=== PATIENT | male | born 1955 | race Caucasian/White ===

== ENCOUNTER 2022-11-09 12:09 | Outpatient (REF) | payer OTHER, SELFPAY ==
[2022-11-09 13:43] LABS: MANUAL DIFF FLAG NO
[2022-11-09 14:03] LABS: Basophils Absolute Auto 0.1 X10*3/uL (0.0-0.2); Basophils Percent Auto 0.7 % (0-2); Eosinophils Absolute Auto 0.1 X10*3/uL (0.0-0.4); Eosinophils Percent Auto 2.1 % (0-4); Hematocrit 44.5 % (42.0-52.0); Hemoglobin 14.7 g/dl (14.0-18.0); Imm Gran Abs Auto 0.03 X10*3/uL (0.00-0.03); Imm Gran Pct Auto 0.4 % (0.0-0.4); Lymphocytes Absolute Auto 1.3 X10*3/uL (1.2-4.9); Lymphocytes Percent Auto 19.7 % (20-40); Mean Corpuscular Hemoglobin 29.2 pg (27.0-33.0); Mean Corpuscular Volume 88.3 fL (80.0-98.0); Monocytes Absolute Auto 0.5 X10*3/uL (0.1-1.2); Monocytes Percent Auto 7.6 % (2-11); Neutrophils Absolute Auto 4.7 x10*3/uL (2.0-8.3); Neutrophils Percent Auto 69.5 % (45-73); Platelet Count 299 X10*3/uL (160-400); Red Blood Count 5.04 X10*6/uL (4.60-5.80); Red Cell Distribution Width 12.6 % (11.0-16.0); White Blood Count 6.8 X10*3/uL (4.8-10.8)
[2022-11-09 14:23] LABS: Alanine Aminotransferase 18 U/L (0-40); Albumin Level 4.2 g/dL (3.5-5.0); Alkaline Phosphatase 100 U/L (39-117); Anion Gap 11 (12-20); Aspartate Amino Transferase 14 U/L (5-37); Blood Urea Nitrogen 20 mg/dL (9-16); Calcium 9.7 mg/dL (8.4-10.2); Carbon Dioxide 25 mmol/L (22-29); Chloride 109 mmol/L (96-108); Cholesterol 222 mg/dL; Estimated Glomerular Filt Rate 55; Glucose Fasting 113 mg/dL (60-99); HDL Cholesterol 39 mg/dL; LDL Cholesterol Calculated 150 mg/dl; Potassium 4.3 mmol/L (3.3-5.1); Sodium 141 mmol/L (135-145); Triglycerides 169 mg/dL
[2022-11-09 14:40] LABS: TSH reflex Free T4 1.35 uIU/mL (0.32-4.0)
[2022-11-13 21:59] LABS: PSA, Ultra Sensitive 2.48 ng/mL
== END 2022-11-09 12:10 | disposition home or self-care (01) ==
LOC: HO.WFDLDS 12:09
PROVIDERS: Visit Provider Nurse Practitioner Family
DX: Z00.00 Encounter for general adult medical examination without abnormal findings (principal); N52.9 Male erectile dysfunction, unspecified; K46.9 Unspecified abdominal hernia without obstruction or gangrene; M25.661 Stiffness of right knee, not elsewhere classified; I10 Essential (primary) hypertension; Z12.5 Encounter for screening for malignant neoplasm of prostate
CPT/HCPCS: 36415; 80053; 80061; 84153; 84443; 85025

== ENCOUNTER 2022-12-10 13:07 | Outpatient (AMB) | payer OTHER, SELFPAY ==
--- NOTE | 2022-12-10 13:12 | A.OFFPC_ITS ---
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 Accompanied by: Self / Same As Patient Allergies No Known Allergies Allergy (Verified 12/10/22 13:22) Medication List - Last Reconciled 12/10/22 by Rolando Villalobos CNP No Known Home Meds Tobacco use date assessed: 11/05/22 Fall risk assessment: No Falls in past year Last assessed Fall Risk: 12/10/22 Dental Screening Dental Screen Date: 12/10/22 Did you have a dental visit in the last 12 months?: No Did you have a dental problem in the last 6 months where you did not have access to dental care?: No Was dental information given to patient?: Yes HPI HPI Comments History of Present Illness Details 67-year-old male presents for a complete physical exam He established care a month ago. His blood pressure was elevated, 160/100. He declined treatment with amlodipine. He stated he would try lifestyle modification by diet and exercise He notes he has been making healthy the dietary choices and exercising routinely No acute symptoms today He notes that he has an appointment scheduled with urology for ED next month. He has not heard from GI for abdominal hernia He notes that his last colonoscopy may have been 5 years ago: benign polyps removed He has not had the shingle and PNA vaccines PFSH Medical History Kidney stone No pertinent family history Surgical History H/O hernia repair Social History Housing: Apartment Patient Tobacco Use Status: Never used Tobacco e-Cigarette/Vaping Use: Never Used service: No Current occupational status: employed Current occupation: [employer] Cognitive needs: No Hearing needs: No Vision needs: Yes Questionnaire Thrive Questionnaire Date Thrive assessed: 11/05/22 SURAJ-7 AMB Questionnaire SURAJ-7 Date SURAJ - 7 assessed: 11/05/22 Source: Developed by Drs. Demetrius Rubio, Adrianna Lennon, Godfrey Perez and colleagues, with an educational denton from [employer]. Review of Systems Const Details: Denies chills, Denies fatigue, Denies fever(s), Denies headache(s) and Denies weakness HEENT Denies change in vision, Denies dizziness, Denies headache(s), Denies hearing loss, Denies nasal congestion, Denies sinus pain, Denies sinus pressure and Denies sore throat Card Denies chest pain, Denies lightheadedness, Denies dyspnea and Denies other (palpitations) Resp Denies cough, Denies dyspnea and Denies wheezing GI Denies abdominal pain, Denies melena, Denies hematochezia, Denies change in bowel habits, Denies dyspepsia and Denies nausea Denies hematuria and Denies dysuria Musc Denies abnormal gait, Denies myalgias, Denies arthralgias, Denies numbness and Denies tingling Skin/Breast Denies rash, Denies unusual bruising and Denies wounds Neuro Denies abnormal gait, Denies dizziness, Denies headache(s), Denies memory loss, Denies numbness, Denies Sensory deficit (Neuro), Denies tingling and Denies weakness Psych Denies anxiety, Denies depression and Denies memory loss Endo Denies cold intolerance, Denies fatigue, Denies heat intolerance, Denies polydipsia and Denies polyuria Chance/Lymph Denies easy bleeding and Denies easy bruising Aller/Immun Denies wheezing Physical exam (Primary Care) Vital Signs: Last Vital Signs Temp 97.2 F 12/10/22 13:13 Pulse 79 12/10/22 13:13 Resp 12 12/10/22 13:13 BP 128/80 12/10/22 13:13 Pulse Ox 98 12/10/22 13:13 Oxygen Delivery Method Room Air 12/10/22 13:13 BMI result Body Mass Index 26.8 Tobacco/Smoking Status: Tobacco use Status Tobacco use date assessed 11/05/22 11/05/22 11:21 Patient Tobacco Use Status Never used Tobacco 11/05/22 11:21 e-Cigarette/Vaping Use Never Used 11/05/22 11:21 Thrive Assessment: Date of Thrive Assessment Date Thrive assessed 11/05/22 11/05/22 11:21 Const Other: General: no acute distress, well developed, alert and awake Nutritional Appearance: well nourished Orientation/consciousness: patient oriented x3 [facility] Head: Yes normocephalic and Yes atraumatic Ears: hearing grossly normal bilaterally and TM's normal bilaterally General nose exam: Normal external nose present and Normal nares present Mouth: Normal oral and palatal mucosa present and moist mucous membranes Teeth and gingiva: dentition normal Throat: Yes oropharynx normal Eyes Pupils: Equal, round and reactive pupils present and Pupil accommodation reflex normal EOM: EOMs intact bilaterally Neck Neck: Yes normal visual inspection, Yes no lymphadenopathy and Yes trachea midline Thyroid: Thyroid normal Carotids: no bruits Lymphatic: no lymphadenopathy noted Chest Chest palpation & inspection: normal inspection of the chest Resp Effort & Inspection: normal respiratory effort Auscultation: clear to auscultation bilaterally Cardio Rate: regular rate Rhythm: regular rhythm Heart sounds: S1 normal heart sound present, S2 normal heart sound present, no gallops, no murmurs and no rubs Bruits: no abdominal aortic bruits and no carotid bruits GI Palpation (GI): No Abdominal aortic bruit present, Soft to palpation, nontender, No hepatosplenomegaly present and No Rebound tenderness present Approximately 5 cm 5 cm soft, painless protrusion noted to the right upper quadrant proximal to the midline Auscultation: normal bowel sounds General: Yes no CVA tenderness Back/Spine/Pelvis Back: no CVA tenderness Cervical Spine: cervical ROM normal and No Cervical spine tenderness Thoracic/Lumbar Spine: thoraco-lumbar ROM normal, No pain with thoraco-lumbar ROM, No thoracic spinal tenderness and No lumbar spinal tenderness Skin General: warm and dry. Normal skin color. Normal skin turgor Lesions: no lesions Rashes: no rashes Trauma: no lacerations or abrasions Wounds: no wounds Nails: normal Neuro General: patient oriented x3, gait normal and CN's II-XI intact bilaterally Cranial nerves: Yes Equal, round and reactive pupils present Cognition (Neuro): normal cognition Gait exam (Neuro): Normal gait present Motor exam (neuro): 5/5 motor strength present throughout Sensory Exam: No Sensory deficit (Neuro) Deep tendon reflexes (DTR's): Right patellar reflex intensity grade: 2+ and Left patellar reflex intensity grade: 2+ Extrem General: Yes normal to inspection, No edema and No calf tenderness Psych Appearance: grossly normal Affect: normal affect Attitude: cooperative Thought process: Normal thought process present Assessment and Plan Assessment & Plan (1) Normal physical examination, routine: Code(s): Z00.00 - Encounter for general adult medical examination without abnormal findings Plan: No significant physical restrictions or limitations noted Follow-up in 3 months for health maintenance Return sooner with symptoms or concerns Verbalized understanding and agreed with treatment plan. (2) Elevated blood pressure reading without diagnosis of hypertension: Code(s): R03.0 - Elevated blood-pressure reading, without diagnosis of hypertension Plan: He established care a month ago. His blood pressure was elevated, 160/100. He declined treatment with amlodipine. He stated he would try lifestyle modification by diet and exercise He notes he has been making healthy the dietary choices and exercising routinely His blood pressure today is 128/80, within goal of less than 140/90 Low-sodium diet and routine exercise encouraged Will continue to monitor Return in 3 months for health maintenance or sooner with symptoms or concerns Verbalized understanding and agreed with treatment plan (3) Abdominal hernia: Code(s): K46.9 - Unspecified abdominal hernia without obstruction or gangrene Plan: He has not heard from GI for abdominal hernia Approximately 5 cm 5 cm soft, painless protrusion noted to the right upper quadrant proximal to the midline Will discontinue GI referral and refer to general surgery Follow-up with symptoms or concerns Verbalized understanding and agreed with treatment plan (4) Elevated fasting glucose: Code(s): R73.01 - Impaired fasting glucose Plan: Recent lab results reviewed with patient Fasting blood glucose was elevated, 113 Fasting blood glucose reordered to monitor trend. Encouraged to get blood work done Healthy diet and routine exercise encouraged Follow-up with symptoms or concerns Verbalized understanding and agreed with treatment plan (5) Hyperlipidemia: Code(s): E78.5 - Hyperlipidemia, unspecified Plan: Recent lab results reviewed with patient Slight elevation on triglyceride, cholesterol, and LDL levels; slight decrease in HDL level His 10-year risk of ASCVD is 12.2% Limit foods high in saturated fat and avoid foods high trans Routine exercise encouraged Lipid panel ordered. Advised to get fasting blood work done 1-2 days before next visit Follow-up in 3 months for health maintenance or return sooner with symptoms or concerns Verbalized understanding and agreed with treatment plan. (6) Colon cancer screening: Code(s): Z12.11 - Encounter for screening for malignant neoplasm of colon Plan: Referred to Gastroenterology (7) Vaccine counseling: Code(s): Z71.85 - Encounter for immunization safety counseling Plan: Instructed on the importance of vaccination and encouraged to get vaccinated against shingles and pneumonia Verbalized understanding and agreed with the plan Orders: Orders Glucose Fasting Today R73.01 - Impaired fasting glucose Lipid Panel 3 Months E78.5 - Hyperlipidemia, unspecified Referrals Gastroenterology Referral Z12.11 - Encounter for screening for malignant neoplasm of colon General Surgery Referral K46.9 - Unspecified abdominal hernia without obstruction or gangrene Coding Level of Care Code Est Pt Prev Care >65y(52861) Diagnoses Normal physical examination, routine Z00.00 Elevated blood pressure reading without diagnosis of hypertension R03.0 Abdominal hernia K46.9 Elevated fasting glucose R73.01 Hyperlipidemia E78.5 Colon cancer screening Z12.11 Vaccine counseling Z71.85
[2022-12-10 13:13] VITALS: BP 128/80; PULSE 79; RESP 12; TEMP 36.2; O2SAT 98; BMI 26.8
== END 2022-12-10 13:54 | disposition home or self-care (01) ==
PROVIDERS: PCP Internal Medicine; Visit Provider Nurse Practitioner Family
DX: Z00.00 Encounter for general adult medical examination without abnormal findings (principal); R03.0 Elevated blood-pressure reading, without diagnosis of hypertension; K46.9 Unspecified abdominal hernia without obstruction or gangrene; R73.01 Impaired fasting glucose; E78.5 Hyperlipidemia, unspecified; Z12.11 Encounter for screening for malignant neoplasm of colon; Z71.85 Encounter for immunization safety counseling
CPT/HCPCS: 99397

== ENCOUNTER 2022-12-16 09:14 | Outpatient (AMB) | payer OTHER, SELFPAY ==
--- NOTE | 2022-12-16 09:15 | A.OFFVIS_ITS ---
Intake Vital Signs 12/16/22 09:22 Height 5 ft 6.54 in Weight 175 lb BMI 27.8 BP 161/98 H Blood Pressure Location Rt brachial Position Sitting Pulse 82 Intake Visit Reasons: abdominal hernia Intake Note: Patient referred for abd hernia. Has been present for years. Has protrusion on RUQ. Denies pain or tenderness. 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 It has been present for many many years. Patient thinks it is increasing in size, becoming more symptomatic. It is definitely more noticeable since he has lost weight he thinks. Patient is quite active and does heavy lifting at work and also lifts weights for recreation. He is tolerating a diet having normal bowel habits. He has no other GI issues or complaints. [facility] Medical History Kidney stone No pertinent family history Surgical History H/O hernia repair Social History (Updated 12/16/22 @ 09:22 by KATHERINE Mart) Housing: Apartment Alcohol intake: former Patient Tobacco Use Status: Never used Tobacco e-Cigarette/Vaping Use: Never Used service: No Current occupational status: employed Current occupation: [employer] Cognitive needs: No Hearing needs: No Vision needs: Yes Physical Exam Vital Signs: Last Vital Signs Pulse 82 12/16/22 09:22 BP 161/98 H 12/16/22 09:22 BMI result Body Mass Index 27.8 Chest Other: Chest breath sounds bilaterally, HS 1 in 2 GI Other: Patient was examined both supine and standing with Valsalva. Bilateral groin exam negative. Genitalia within normal limits. Abdomen soft, benign. Supraumbilical irreducible ventral hernia measuring approximately 2 cm. Assessment & Plan Assessment & Plan (1) Ventral hernia: Code(s): K43.9 - Ventral hernia without obstruction or gangrene Plan I discussed the patient therapeutic options which include conservative therapy or consideration for repair. Risks, benefits, alternatives of repair reviewed the patient included but not limited to bleeding, infection, recurrence, numbness, pain, scarring, bowel injury and the patient would like to think over his options. He is retiring and a few months time would like to proceed with surgery once his assisted is activated. The meantime, we discussed symptoms of incarceration and strangulation and should he develop any of these, he has been instructed to call the office or present immediately to the ER. Coding Level of Care Code New Pt Level 4 (04306) Diagnoses Ventral hernia K43.9
[2022-12-16 09:22] VITALS: BP 161/98; PULSE 82; BMI 27.8
== END 2022-12-16 09:45 | disposition home or self-care (01) ==
PROVIDERS: PCP Nurse Practitioner Family; Visit Provider Surgery
DX: K43.9 Ventral hernia without obstruction or gangrene (principal)
CPT/HCPCS: 99204

== ENCOUNTER → 2022-12-16 09:14 | Outpatient (BNVA) | payer OTHER, SELFPAY | PROVIDERS: PCP Nurse Practitioner Family; Visit Provider Surgery ==

== ENCOUNTER 2022-12-21 10:37 | Outpatient (REF) | payer OTHER, SELFPAY ==
[2022-12-21 14:22] LABS: Appearance Urine Clear; Color Urine Yellow; Glucose Urine UA Negative (Negative); Leukocyte Esterase Urine Negative (Negative); Nitrite Urine Negative (Negative); PH 5.5 (5.0-9.0); Specific Gravity - Urine 1.015 (1.005-1.025); Urine Blood Negative (Negative); Urine Ketones Negative (Negative); Urine Protein Negative (Neg-Trace)
[2022-12-21 14:57] LABS: Glucose Fasting 103 mg/dL (60-99)
== END 2022-12-21 10:38 | disposition home or self-care (01) ==
LOC: HO.WFDLDS 10:37
PROVIDERS: Visit Provider Nurse Practitioner Family
DX: Z00.00 Encounter for general adult medical examination without abnormal findings (principal); R73.01 Impaired fasting glucose
CPT/HCPCS: 36415; 81003; 82947

== ENCOUNTER 2023-01-13 10:34 | Outpatient (AMB) | payer OTHER, SELFPAY ==
--- NOTE | 2023-01-13 03:47 | A.OFFVIS_ITS ---
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 01/13/2023? He mentions having erectile dysfunction. He states that the symptoms have been ongoing for 2 years. He tried the generic Viagra, but he did not get a full erection with that. He denies morning erection. He denies any history of cigarette smoking. I reviewed the results of PSA from 11/09/2022 revealed 2.48. He had urinalysis on 11/2022, I reviewed results UA -leuk neg, blood neg Plan: Free and total testosterone level (fasting) and Cialis 5 mg was ordered. 8-week tele-health video follow up. [facility] Medical History Kidney stone No pertinent family history Surgical History H/O hernia repair Social History Housing: Apartment Alcohol intake: former Patient Tobacco Use Status: Never used Tobacco e-Cigarette/Vaping Use: Never Used service: No Current occupational status: employed Current occupation: [employer] Cognitive needs: No Hearing needs: No Vision needs: Yes Review of Systems Const All systems reviewed & are unremarkable except as noted in HPI and below Reports no additional complaints Eyes Reports no additional complaints ENT Reports no additional complaints Card Denies dyspnea Resp Denies cough and Denies dyspnea GI Reports no additional complaints Musc Reports no additional complaints Skin/Breast Denies rash and Denies unusual bruising Neuro Reports no additional complaints Psych Reports no additional complaints Endo Reports no additional complaints Chance/Lymph Reports no additional complaints Aller/Immun Reports no additional complaints Physical Exam Const General: healthy appearing, no acute distress and well developed Orientation/consciousness: patient oriented x3 HEENT Head: Yes normocephalic and Yes atraumatic Eyes Conjunctivae: conjunctivae normal Neck Neck: Yes normal visual inspection Chest Chest palpation & inspection: normal inspection of the chest Resp Effort & Inspection: normal respiratory effort Cardio Rate: regular rate GI Inspection: Yes normal to inspection Skin General skin exam: no rashes or lesions noted Neuro General: patient oriented x3 Extrem General: No pedal edema Psych Appearance: grossly normal Affect: normal affect Assessment & Plan Assessment & Plan (1) Erectile dysfunction: Code(s): N52.9 - Male erectile dysfunction, unspecified Plan Free and total testosterone level (fasting) and Cialis 5 mg was ordered. 8-week tele-health video follow up. Medications: New tadalafil (Cialis) [id number] [facility] [id number] Member [id number] 5 mg PO DAILY 90 tabs 1RF Patient Instructions: The patient had an opportunity to ask questions regarding treatment plan. All questions were answered. Imaging, Laboratory studies and physical exam results were discussed and reviewed in detail. No major barriers to understanding were identified. The patient expressed understanding and agreement with the above treatment plan.? ? ? The patient is aware they should contact our office by phone for worsening of their current condition or the appearance of new symptoms. Compliance is encouraged with any medications and followup testing that is ordered.? ? ? It is a privilege to be allowed the opportunity to participate in the urologic care of your patient. If you have any questions or concerns regarding treatment for the above conditions please do not hesitate to contact me. The office telephone contact is [phone].? ? ? This note is constructed in part using voice recognition software. While every effort has been made to ensure accuracy technical testing engineer errors may have been included.? ? ? Yours sincerely,? ? ? Linda Shirley MD? Coding Level of Care Code New Pt Level 3 (44427) Diagnoses Erectile dysfunction N52.9
== END 2023-01-13 11:43 | disposition home or self-care (01) ==
PROVIDERS: PCP Nurse Practitioner Family; Visit Provider Urology
DX: N52.9 Male erectile dysfunction, unspecified (principal)
CPT/HCPCS: 99203

== ENCOUNTER → 2023-01-13 10:34 | Outpatient (BNVA) | payer OTHER, SELFPAY | PROVIDERS: PCP Nurse Practitioner Family; Visit Provider Urology ==

== ENCOUNTER 2023-02-22 08:23 | Outpatient (REF) | payer OTHER, SELFPAY ==
[2023-02-22 12:26] LABS: Cholesterol 176 mg/dL (<200); HDL Cholesterol 40 mg/dL (>40); LDL Cholesterol Calculated 113 mg/dL (<100); Triglycerides 117 mg/dL (<150)
== END 2023-02-22 08:24 | disposition home or self-care (01) ==
LOC: HO.WFDLDS 08:23
PROVIDERS: Visit Provider Nurse Practitioner Family
DX: E78.5 Hyperlipidemia, unspecified (principal)
CPT/HCPCS: 36415; 80061

== ENCOUNTER 2023-03-04 08:09 | Outpatient (REF) | payer OTHER, SELFPAY | END 2023-03-04 08:10 | disposition home or self-care (01) | LOC: HO.WFDLDS 08:09 | PROVIDERS: Visit Provider Urology | DX: N52.9 Male erectile dysfunction, unspecified (principal) | CPT/HCPCS: 36415; 84402; 84403 ==

== ENCOUNTER 2023-03-09 13:07 | Outpatient (AMB) | payer OTHER, SELFPAY ==
--- NOTE | 2023-03-09 13:13 | MHC.PC.OV ---
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 Accompanied by: Self / Same As Patient Allergies No Known Allergies Allergy (Verified 03/09/23 13:32) Medication List - Last Reconciled 03/09/23 by Rolando Villalobos CNP tadalafil (Cialis) 5 mg PO DAILY Tobacco use date assessed: 11/05/22 Fall risk assessment: No Falls in past year Last assessed Fall Risk: 03/09/23 Dental Screening Dental Screen Date: 03/09/23 Did you have a dental visit in the last 12 months?: No Did you have a dental problem in the last 6 months where you did not have access to dental care?: No Was dental information given to patient?: Yes HPI HPI Comments History of Present Illness Details 59-year-old male presents for health maintenance follow-up. His last office visit was 3 months ago. He had a complete physical exam. He has history of hyperlipidemia, elevated fasting glucose, elevated blood pressure, erectile dysfunction, and abdominal hernia. On 12/16/2022, he was evaluated by General surgery for ventral hernia. Patient noted he would consider surgical repair once he is retired in a few months. On 01/13/2023, he was evaluated by Urology for erectile dysfunction. He was prescribed Cialis and was advised to follow-up for a telemedicine visit in 8 weeks. He had a colonoscopy appointment scheduled on 02/02/2023. He notes that that the appointment was cancelled because the provider arrived late. He called to rescheduled but he has not heard a response back. He reports significant improvement of erectile dysfunction on Cialis. He notes that he has been maintaining a fairly healthy diet. He has also been avoiding salt. He denies acute symptoms. [facility] Medical History Kidney stone No pertinent family history Surgical History H/O hernia repair Social History Housing: Apartment Alcohol intake: former Patient Tobacco Use Status: Never used Tobacco e-Cigarette/Vaping Use: Never Used service: No Current occupational status: employed Current occupation: [employer] Cognitive needs: No Hearing needs: Yes Vision needs: No Questionnaire Thrive Questionnaire Date Thrive assessed: 11/05/22 SURAJ-7 AMB Questionnaire SURAJ-7 Date SURAJ - 7 assessed: 11/05/22 Source: Developed by Drs. Demetrius Rubio, Adrianna Lennon, Godfrey Perez and colleagues, with an educational denton from [email or web address]. Review of Systems Const Details: Const Denies chills, Denies fatigue, Denies fever(s), Denies headache(s) and Denies weakness ENT Denies dizziness and Denies headache(s) Card Denies chest pain, Denies lightheadedness, Denies dyspnea and Denies other (Palpitations) Resp Denies cough, Denies dyspnea, Denies wheezing and Denies other ( shortness of breath) GI Denies abdominal pain, Denies melena, Denies hematochezia, Denies change in bowel habits, Denies dyspepsia and Denies nausea Denies hematuria and Denies dysuria Musc Denies abnormal gait, Denies myalgias, Denies arthralgias, Denies numbness and Denies tingling Skin/Breast Denies rash, Denies unusual bruising and Denies wounds Neuro Denies abnormal gait, Denies dizziness, Denies headache(s), Denies memory loss, Denies numbness, Denies Sensory deficit (Neuro), Denies tingling and Denies weakness Psych Denies anxiety, Denies depression, Denies memory loss Endo Denies cold intolerance, Denies fatigue, Denies heat intolerance, Denies polydipsia and Denies polyuria Aller/Immun Denies wheezing Physical exam (Primary Care) Tobacco/Smoking Status: Tobacco use Status Tobacco use date assessed 11/05/22 03/09/23 13:15 Patient Tobacco Use Status Never used Tobacco 03/09/23 13:15 e-Cigarette/Vaping Use Never Used 03/09/23 13:15 Thrive Assessment: Date of Thrive Assessment Date Thrive assessed 11/05/22 03/09/23 13:15 Const Other: General: no acute distress and well developed Nutritional Appearance: well nourished Orientation/consciousness: patient oriented x3 [facility] Head: Yes normocephalic and Yes atraumatic Eyes General: appearance normal, both eyes and all related structures Pupils: Equal, round and reactive pupils present EOM: EOMs intact bilaterally Resp Effort & Inspection: normal respiratory effort Auscultation: clear to auscultation bilaterally Cardio Rate: regular rate Rhythm: regular rhythm Heart sounds: S1 normal heart sound present, S2 normal heart sound present, no gallops, no murmurs and no rubs GI Palpation (GI): No Abdominal aortic bruit present, Soft to palpation, nontender, No hepatosplenomegaly present and No Rebound tenderness present Auscultation: normal bowel sounds General: Yes no CVA tenderness Back/Spine/Pelvis Back: no CVA tenderness Cervical Spine: cervical ROM normal and No Cervical spine tenderness Thoracic/Lumbar Spine: thoraco-lumbar ROM normal, No pain with thoraco-lumbar ROM, No thoracic spinal tenderness and No lumbar spinal tenderness Extrem General: Yes normal to inspection, No edema and No calf tenderness Skin General: warm and dry. Normal skin color. Normal skin turgor Lesions: no lesions Rashes: no rashes Trauma: no lacerations or abrasions Wounds: no wounds Nails: normal Neuro General: patient oriented x3, gait normal and no focal neuro deficit Cranial nerves: Yes Equal, round and reactive pupils present Cognition (Neuro): normal cognition Gait exam (Neuro): Normal gait present Sensory Exam: No Sensory deficit (Neuro) Psych Appearance: grossly normal Affect: normal affect Attitude: cooperative Thought process: Normal thought process present Results AMB Hemoglobin A1c AMB Hemoglobin A1c 5.8 % Last Edit by Isamar Quesada MA on 03/09/23 13:47 Assessment and Plan Assessment & Plan (1) Pre-diabetes: Code(s): R73.03 - Prediabetes Plan: His fasting glucose has been slightly elevated twice A1c today is 5.8% and indicates prediabetes Instructed on healthy diet including low carbs Will continue to monitor at least annually Verbalized understanding and agreed with the treatment plan. (2) Erectile dysfunction: Code(s): N52.9 - Male erectile dysfunction, unspecified Plan: Reports significant improvement on Cialis. Continue to take Cialis as prescribed. Continue follow-up with urology as planned. Return with with worsening or new symptoms. Verbalized understanding and agreed with treatment plan. (3) Hyperlipidemia: Code(s): E78.5 - Hyperlipidemia, unspecified Plan: Advised to limit foods high in saturated fat and avoid foods high trans fat. Routine exercise encouraged. Verbalized understanding and agreed with treatment plan. (4) Elevated blood pressure reading without diagnosis of hypertension: Code(s): R03.0 - Elevated blood-pressure reading, without diagnosis of hypertension Plan: He has had history of elevated blood pressure readings. His resting blood pressure today is 140/80 on the left arm and 154/90 on the right arm. Low-sodium diet encouraged. Patient advised to follow-up for a nurse visit for blood pressure check in a week and subsequent week. Follow-up with PCP in 1 month. Return with symptoms or concerns. Verbalized understanding and agreed with treatment plan. (5) Colon cancer screening: Code(s): Z12.11 - Encounter for screening for malignant neoplasm of colon Plan: He had a GI appointment for colonoscopy that was scheduled on 02/02/2023 but canceled. Patient notes that appointment was canceled due to the provider not being on time. The certified medical assistant called the GI office and was told that the patient was a no-show for his colonoscopy appointment. He is instructed to call the direct life with GI and reschedule his appointment. Telephone number for direct contact to GI provided to the patient. Patient admits that forgot and went to his appointment the day after it was scheduled. Patient encouraged to call and schedule an appointment for a colonoscopy. He verbalized understanding and agreed with the plan. Orders: Orders AMB Hemoglobin A1c Today Z13.9 - Encounter for screening, unspecified Coding Level of Care Code Est Pt Level 3 (37618) Diagnoses Pre-diabetes R73.03 Erectile dysfunction N52.9 Hyperlipidemia E78.5 Elevated blood pressure reading without diagnosis of hypertension R03.0 Colon cancer screening Z12.11
[2023-03-09 13:19] VITALS: BP 136/74; PULSE 75; RESP 13; TEMP 36.4; O2SAT 99; BMI 28.1
[2023-03-09 13:43] VITALS: BP 140/80
[2023-03-09 13:44] VITALS: BP 154/90
== END 2023-03-09 14:07 | disposition home or self-care (01) ==
PROVIDERS: PCP Nurse Practitioner Family; Visit Provider Nurse Practitioner Family
DX: R73.03 Prediabetes (principal); N52.9 Male erectile dysfunction, unspecified; E78.5 Hyperlipidemia, unspecified; R03.0 Elevated blood-pressure reading, without diagnosis of hypertension; Z12.11 Encounter for screening for malignant neoplasm of colon
CPT/HCPCS: 83036; 99213

== ENCOUNTER 2023-03-15 09:05 | Outpatient (AMB) | payer OTHER, SELFPAY ==
--- NOTE | 2023-03-15 09:06 | MHC.OFFVIS ---
Intake Intake Visit Reasons: 8w/lab Intake Note: Patient presents today for a Telehealth visit Meds- Tadalafil Allergies to Antibiotic- No Known Allergies Blood Thinner- None Allergies No Known Allergies Allergy (Verified 03/15/23 09:07) Medication List - Last Reconciled 03/15/23 by Linda Shirley MD tadalafil (Cialis) 5 mg PO DAILY HPI HPI Comments History of Present Illness Details Chay is a 68-year-old male who presents today via Tele-health visit for a follow-up. 03/15/23? He is followed today for blood work. He was last seen by me on 01/13/23 for erectile dysfunction. Free and total testosterone level (fasting) and Cialis 5 mg was ordered during that time. Patient states that he has noticed improvement in his erection function with the use of Cialis 5 mg. I reviewed his Free and total testosterone level (fasting) revealed within normal limits. Review of charts: Last visit: 01/13/2023? He mentions having erectile dysfunction. He states that the symptoms have been ongoing for 2 years. He tried the generic Viagra, but he did not get a full erection with that. He denies morning erection. He denies any history of cigarette smoking. I reviewed the results of PSA from 11/09/2022 revealed 2.48. He had urinalysis on 11/2022, I reviewed results UA -leuk neg, blood neg 03/15/23: Plan: Refilled Cialis 5 mg. Continue PSA screening. Follow-up in November,, PSA screening prior. [facility] Medical History No pertinent family history Kidney stone Surgical History H/O hernia repair Social History Housing: Apartment Alcohol intake: former Patient Tobacco Use Status: Never used Tobacco e-Cigarette/Vaping Use: Never Used service: No Current occupational status: employed Current occupation: [employer] Cognitive needs: No Hearing needs: Yes Vision needs: No Review of Systems Const All systems reviewed & are unremarkable except as noted in HPI and below Reports no additional complaints Eyes Reports no additional complaints ENT Reports no additional complaints Card Denies dyspnea Resp Denies cough and Denies dyspnea GI Reports no additional complaints Musc Reports no additional complaints Skin/Breast Denies rash and Denies unusual bruising Neuro Reports no additional complaints Psych Reports no additional complaints Endo Reports no additional complaints Chance/Lymph Reports no additional complaints Aller/Immun Reports no additional complaints Assessment & Plan Assessment & Plan (1) Erectile dysfunction: Code(s): N52.9 - Male erectile dysfunction, unspecified Plan Refilled Cialis 5 mg. Continue PSA screening. Follow-up in October/November,, PSA screening prior. Medications: Refilled tadalafil (Cialis) [id number] [facility] [id number] Member [id number] 5 mg PO DAILY 90 tabs 3RF Patient Instructions: The patient had an opportunity to ask questions regarding treatment plan. All questions were answered. Imaging, Laboratory studies and physical exam results were discussed and reviewed in detail. No major barriers to understanding were identified. The patient expressed understanding and agreement with the above treatment plan.? ? ? The patient is aware they should contact our office by phone for worsening of their current condition or the appearance of new symptoms. Compliance is encouraged with any medications and followup testing that is ordered.? ? ? It is a privilege to be allowed the opportunity to participate in the urologic care of your patient. If you have any questions or concerns regarding treatment for the above conditions please do not hesitate to contact me. The office telephone contact is [phone].? ? ? This note is constructed in part using voice recognition software. While every effort has been made to ensure accuracy squeak rattle and leak repairer errors may have been included.? ? ? Yours sincerely,? ? ? Linda Shirley MD? Telehealth Telehealth Location of provider rendering services: practice address Location of patient: address on file Patient Identification confirmed using: Name, : Yes Telehealth method: voice only Patient verbally consented to treatment: Yes Patient verbally consented to billing insurance company: Yes Patient informed of any privacy concerns related to visit: Yes Minutes spent on Phone/Video with Pt.: 15 Coding Level of Care Code Tele New Pt Level 3 (82811) Diagnoses Erectile dysfunction N52.9
== END 2023-03-15 09:50 | disposition home or self-care (01) ==
LOC: HO.HUSH 09:05
PROVIDERS: PCP Nurse Practitioner Family; Visit Provider Urology
DX: N52.9 Male erectile dysfunction, unspecified (principal)
CPT/HCPCS: G2252

== ENCOUNTER → 2023-03-15 09:05 | Outpatient (BNVA) | payer OTHER, SELFPAY | PROVIDERS: PCP Nurse Practitioner Family; Visit Provider Urology ==

== ENCOUNTER 2023-04-14 13:10 | Outpatient (AMB) | payer OTHER, SELFPAY ==
--- NOTE | 2023-04-14 13:12 | A.OFFPC_ITS ---
Vital Signs 04/14/23 13:18 04/14/23 13:36 Height 5 ft 6 in Weight 177 lb BMI 28.6 BP 148/80 H 140/90 H Blood Pressure Location Lt brachial Rt brachial Position Sitting Sitting Respiration 14 Pulse 84 Pulse Source Pulse Oximeter Pulse Oximetry (%) 98 Oxygen Delivery Method Room Air Intake Visit Reasons: f/u HTN Intake Note: Patient is here for a follow up for hypertension. Drug Regulatory Affairs Specialist Required: No Accompanied by: Self / Same As Patient Allergies No Known Allergies Allergy (Verified 04/14/23 13:26) Medication List - Last Reconciled 04/14/23 by Rolando Villalobos CNP tadalafil (Cialis) 5 mg PO DAILY Tobacco use date assessed: 11/05/22 Fall risk assessment: No Falls in past year Last assessed Fall Risk: 04/14/23 HPI HPI Comments History of Present Illness Details 68-year-old male presents for hypertensi on follow-up He established care in October. His blood pressure was found to be elevated. Treatment was recommended with amlodipine. However, patient declined and stated he will try lifestyle modification, including diet and routine exercise. He notes that he has not been able to exercise since his last visit. However, he has been consuming less sodium done before, but he cannot stop eating foods with high sodium content. He offers no complaints and denies acute symptoms at this time. [facility] Medical History No pertinent family history Kidney stone Surgical History H/O hernia repair Social History Housing: Apartment Alcohol intake: former Patient Tobacco Use Status: Never used Tobacco e-Cigarette/Vaping Use: Never Used service: No Current occupational status: employed Current occupation: [employer] Cognitive needs: No Hearing needs: Yes Vision needs: No Questionnaire Thrive Questionnaire Date Thrive assessed: 11/05/22 SURAJ-7 AMB Questionnaire SURAJ-7 Date SURAJ - 7 assessed: 11/05/22 Source: Developed by Drs. Demetrius Rubio, Adrianna Lennon, Godfrey Perez and colleagues, with an educational denton from [employer] Review of Systems Const Details: Const Denies chills, Denies fatigue, Denies fever(s), Denies headache(s) and Denies weakness ENT Denies dizziness and Denies headache(s) Card Denies chest pain, Denies lightheadedness, Denies dyspnea and Denies other (Palpitations) Resp Denies cough, Denies dyspnea, Denies wheezing and Denies other ( shortness of breath) GI Denies abdominal pain, Denies melena, Denies hematochezia, Denies change in bowel habits, Denies dyspepsia and Denies nausea Denies hematuria and Denies dysuria Musc Denies abnormal gait, Denies myalgias, Denies arthralgias, Denies numbness and Denies tingling Skin/Breast Denies rash, Denies unusual bruising and Denies wounds Neuro Denies abnormal gait, Denies dizziness, Denies headache(s), Denies memory loss, Denies numbness, Denies Sensory deficit (Neuro), Denies tingling and Denies weakness Psych Denies anxiety, Denies depression, Denies memory loss Endo Denies cold intolerance, Denies fatigue, Denies heat intolerance, Denies polydipsia and Denies polyuria Aller/Immun Denies wheezing Physical exam (Primary Care) Vital Signs: Last Vital Signs Pulse 84 04/14/23 13:18 Resp 14 04/14/23 13:18 BP 148/80 H 04/14/23 13:18 Pulse Ox 98 04/14/23 13:18 Oxygen Delivery Method Room Air 04/14/23 13:18 BMI result Body Mass Index 28.6 Tobacco/Smoking Status: Tobacco use Status Tobacco use date assessed 11/05/22 03/09/23 13:15 Patient Tobacco Use Status Never used Tobacco 03/09/23 13:15 e-Cigarette/Vaping Use Never Used 03/09/23 13:15 Thrive Assessment: Date of Thrive Assessment Date Thrive assessed 11/05/22 03/09/23 13:15 Const Other: General: no acute distress and well developed Nutritional Appearance: well nourished Orientation/consciousness: patient oriented x3 HENMT Head: Yes normocephalic and Yes atraumatic Eyes General: appearance normal, both eyes and all related structures Pupils: Equal, round and reactive pupils present EOM: EOMs intact bilaterally Resp Effort & Inspection: normal respiratory effort Auscultation: clear to auscultation bilaterally Cardio Rate: regular rate Rhythm: regular rhythm Heart sounds: S1 normal heart sound present, S2 normal heart sound present, no gallops, no murmurs and no rubs GI Palpation (GI): No Abdominal aortic bruit present, Soft to palpation, nontender, No hepatosplenomegaly present and No Rebound tenderness present Auscultation: normal bowel sounds General: Yes no CVA tenderness Back/Spine/Pelvis Back: no CVA tenderness Cervical Spine: cervical ROM normal and No Cervical spine tenderness Thoracic/Lumbar Spine: thoraco-lumbar ROM normal, No pain with thoraco-lumbar ROM, No thoracic spinal tenderness and No lumbar spinal tenderness Extrem General: Yes normal to inspection, No edema and No calf tenderness Skin General: warm and dry. Normal skin color. Normal skin turgor Neuro General: patient oriented x3, gait normal and no focal neuro deficit Cranial nerves: Yes Equal, round and reactive pupils present Cognition (Neuro): normal cognition Gait exam (Neuro): Normal gait present Sensory Exam: No Sensory deficit (Neuro) Psych Appearance: grossly normal Affect: normal affect Attitude: cooperative Thought process: Normal thought process present Assessment and Plan Assessment & Plan (1) Hypertension: Code(s): I10 - Essential (primary) hypertension Qualifiers: Hypertension type: primary hypertension Qualified Code(s): I10 - Essential (primary) hypertension Plan: His resting blood pressure is 140/90, slightly above goal of less than 140/90 Declines medication treatment and notes he will continue with diet and exercise Low-sodium diet and routine exercise encouraged Follow-up in 4 months or return sooner with symptoms or concerns Verbalized understanding and agreed with treatment plan. Coding Level of Care Code Est Pt Level 3 (95903) Diagnoses Primary hypertension I10 Hypertension type: primary hypertension
[2023-04-14 13:18] VITALS: BP 148/80; PULSE 84; RESP 14; O2SAT 98; BMI 28.6
[2023-04-14 13:36] VITALS: BP 140/90
== END 2023-04-14 13:43 | disposition home or self-care (01) ==
PROVIDERS: PCP Nurse Practitioner Family; Visit Provider Nurse Practitioner Family
DX: I10 Essential (primary) hypertension (principal)
CPT/HCPCS: 99213